=== PATIENT | female | born 1955 | race Caucasian/White ===

== ENCOUNTER 2020-10-23 10:08 | Inpatient (IN) | payer OTHER ==
[~2020-10-23] VITALS: Ht 152.4 cm; Wt 76.2 kg
[2020-10-23] VITALS (15 sets, daily range): BP systolic 111–144; BP diastolic 54–76
[2020-10-23] MEDS ORDERED: LIDOCAINE 1% PF 2 ML VIAL. ONE (10:19)
[2020-10-23] MEDS ORDERED: IODIXANOL 320 MG/ML 100 ML VIAL. ONE (10:19)
[2020-10-23] MEDS ORDERED: HEPARIN for ARTERIAL LINE 1,500 ML ONE (10:19)
[2020-10-23] MEDS ORDERED: fentaNYL PF VIAL 100 MCG/2 ML VIAL ONE (10:32)
[2020-10-23] MEDS ORDERED: VERAPAMIL 5 MG/2 ML VIAL. ONE (10:33)
[2020-10-23] MEDS ORDERED: NITROGLYCERIN 200 MCG/2 ML SYRINGE FOR CATH/VASC LAB. ONE ×3 (10:33→11:40)
[2020-10-23] MEDS ORDERED: HEPARIN for IV BOLUS 10,000 UNIT/10 ML VIAL. ONE (10:33)
[2020-10-23] MEDS ORDERED: MIDAZOLAM HCL/PF 2 MG/2 ML VIAL. ONE (10:33)
[2020-10-23] MEDS ORDERED: OMEP20CA16 PO (11:01)
[2020-10-23] MEDS ORDERED: HYDR200T5 PO (11:01)
[2020-10-23] MEDS ORDERED: FURO-68 PO (11:01)
[2020-10-23] MEDS ORDERED: [UNRECOGNIZED DRUG - OTHER] MT (11:01)
[2020-10-23] MEDS ORDERED: ASPI81TA59 PO (11:01)
[2020-10-23] MEDS ORDERED: AMLO5TAB4 PO (11:01)
--- NOTE | 2020-10-23 11:17 | PDOC ---
MODERATE SEDATION ASSESSMENT RISKS/ALTERNATIVES Risks/Alternatives Risks and alternatives of this type of sedation and procedure discussed with: RISK/ALTERNATIVES: Patient H & P ON CHART H & P H & P on chart and reviewed for co-morbid conditions and appropriate labs. H&P ON CHART: Yes STATUS PREG STATUS ASSESSED: N/A MEDS/ALLERGIES REVIEWED Meds/Allergies Reviewed Medications and Allergies including time and route of recently administered narcotics and sedatives. MEDS/ALLERGIES REVIEWED: Yes ASA RATING ASA RATING: II AIRWAY ASSESSMENT Airway Assessment Airway patency, oral function limitations, presence of caps, crowns, dentures, partials, and ability to extend neck assessed. AIRWAY ASSESSMENT: Yes MALLAMPATI SCORE MALLAMPATI SCORE: II PRE-SEDATION ASSESSMENT PRE-SEDATION ASSESSMENT: Yes IRVIN BARBOSA MD Oct 23, 2020 11:17
[2020-10-23] MEDS ORDERED: NITROGLYCERIN 200 MCG/2 ML SYRINGE FOR CATH/VASC LAB. IART ONE (11:30)
[2020-10-23] MEDS ORDERED: IODIXANOL 320 MG/ML 100 ML VIAL. IART ONE (11:30)
[2020-10-23] MEDS ORDERED: LIDOCAINE 1% PF 2 ML VIAL. INJ ONE (11:30)
[2020-10-23] MEDS ORDERED: fentaNYL PF VIAL 100 MCG/2 ML VIAL IV ONE (11:30)
[2020-10-23] MEDS ORDERED: HEPARIN for IV BOLUS 10,000 UNIT/10 ML VIAL. IART ONE (11:30)
[2020-10-23] MEDS ORDERED: VERAPAMIL 5 MG/2 ML VIAL. IART ONE (11:30)
[2020-10-23] MEDS ORDERED: MIDAZOLAM HCL/PF 2 MG/2 ML VIAL. IV ONE (11:30)
[2020-10-23] MEDS ORDERED: TIROFIBAN 5MG -0.9% NS 100 ML IV ONE (11:35)
--- NOTE | 2020-10-23 11:42 | HP ---
ADMIT DATE: 10/23/2020 HISTORY OF PRESENT ILLNESS: The patient is a 65-year-old female patient transferred from [facility] where she was admitted with chest pain. She is known to have scleroderma. She reported intermittent pressure on her central chest for the last several years, seems to occur with exertional activities and resolved with rest. She underwent stress test and echocardiogram last year that were unremarkable in recent months. Pain has been occurring more frequently and also developing at rest over the last couple of weeks, has been experiencing this pain at night as well as located in her left chest, describes it as pressure radiated down to her left arm, not associated with any dizziness, nausea or diaphoresis. Pain seems to be improved with sitting up. Does have a history of gastroesophageal reflux disease and she is on proton pump inhibitor. Reports pain to be different than what she typically experienced with gastroesophageal reflux disease. Saw her primary care physician a couple of days ago, who recommended to get in with her spot checker. The last night before admission the pain has became very intense and was associated with shortness of breath, left arm pain and tingling, diaphoresis and so she came to the Emergency Department for further evaluation and treatment. Her initial troponins were negative and EKG was unremarkable. She was evaluated by the Cardiology team and a decision was made to transfer her to [facility] for a cardiac catheterization. PAST MEDICAL HISTORY: Significant for scleroderma, diverticulosis and gastroesophageal reflux disease. PAST SURGICAL HISTORY: Significant for cholecystectomy. FAMILY HISTORY: Positive for cancer and diabetes. SOCIAL HISTORY: She lives with her family. Does not smoke, drink alcohol or recreational drugs. ALLERGIES: SHE IS ALLERGIC PROCHLORPERAZINE. MEDICATIONS: She is currently on the following medication: She is on hydroxychloroquine sulfate 200 mg twice a day, amlodipine besylate 5 mg daily, nabumetone 750 mg twice a day, furosemide 40 mg once a day, omeprazole 20 mg daily. REVIEW OF SYSTEMS: As per history of present illness. PHYSICAL EXAMINATION: GENERAL: On examining her, the patient looked well and was clearly in no apparent respiratory distress. There is no pallor, jaundice, cyanosis or thyromegaly. No jugular venous distention. No lower limb edema. VITAL SIGNS: Her heart rate was 83, blood pressure 102/64, temperature was 98.4, respiratory rate was 18, and oxygen saturation 100% on 2 liters of oxygen. HEAD, EYES, EARS, NOSE, AND THROAT: Normocephalic, atraumatic. NECK: Supple. HEART: Showed normal first and second heart sounds. No gallop, rub or murmur. CHEST: Clear to auscultation, no crepitation or rhonchi. ABDOMEN: Distended, soft, nontender. NEUROLOGIC: She was grossly intact. LABORATORY DATA: Her lab work done at [facility] this morning showed a white cell count of 7700, hemoglobin 12, hematocrit 37, MCV 98 and platelet count of 212,000 with normal manual differential. Her sedimentation rate was 6 mm per hour. Her chemistry this morning showed a serum sodium of 142, potassium 3.8, chloride 109, bicarbonate 26, anion gap of 7, BUN 13, creatinine 0.9. Estimated GFR was 63 mL per minute. Her glucose was 95 and calcium was 8.5. She has 3 sets of troponins, all less than 0.017. Her C-reactive protein was 1.3 mg per liter. Her serum triglycerides was 91. Total cholesterol 189, LDL cholesterol 106, VLDL was 18, HDL was 65, and ratio 2. TSH was 4.934. ASSESSMENT AND PLAN: In summary, this is a 65-year-old female patient who was transferred to [facility] for cardiac catheterization as she is having a recurrent episode of chest pain that is worse at nighttime. Her past medical history is significant for scleroderma. She has gastroesophageal reflux disease, diverticulosis, morbid obesity, severe sensorineural deafness, shingles ear, ear tinnitus and we will consult obviously the Cardiology team. Continue with all her medications. [facility] [place] DR: Usman TID: [id number]
[2020-10-23] MEDS ORDERED: NITROGLYCERIN 200 MCG/2 ML SYRINGE FOR CATH/VASC LAB. ICAR ONE (12:00)
[2020-10-23] MEDS ORDERED: HEPARIN for IV BOLUS 10,000 UNIT/10 ML VIAL. IV ONE (12:00)
[2020-10-23] MEDS ORDERED: PRASUGREL 10 MG TABLET. PO ONE (12:00)
[2020-10-23] MEDS ORDERED: TIROFIBAN 5MG -0.9% NS 100 ML IV PRN (12:00)
[2020-10-23] MEDS ORDERED: fentaNYL PF VIAL 100 MCG/2 ML VIAL IV PRN (12:30)
[2020-10-23] MEDS ORDERED: NITROGLYCERIN SUBLINGUAL 0.4 MG BOTTLE OF 25. SL PRN (12:30)
[2020-10-23] MEDS ORDERED: 0.9 % SODIUM CHLORIDE 10 ML DISP.SYRIN. IV PRN (12:30)
[2020-10-23] MEDS ORDERED: ACETAMINOPHEN 325 MG TABLET. PO PRN (12:30)
[2020-10-23] MEDS ORDERED: AMIODARONE 150 MG in IV DEXTROSE 5% 100ML 100 ML IV PRN (12:30)
[2020-10-23] MEDS ORDERED: ATROPINE 0.5 MG/5 ML DISP.SYRINGE. IV PRN (12:30)
[2020-10-23] MEDS ORDERED: LIDOCAINE 2% 100 MG/5 ML SYRINGE. IV PRN (12:30)
--- NOTE | 2020-10-23 14:18 | CARD ---
MR#: [id number] Date of Study: 10/23/2020 Ordering Physician: IRVIN RAGLAND, Referring Physician: IRVIN RAGLAND, Tech: RT Gunjan(R) APPROVED REPORT Technologist: RT Gunjan(R) Nurse: Donna Summers RN Procedure(s) performed: MODERATE SEDATION TIME: 66 MINUTES FLUORO TIME: 5.9 MIN DOSE:70 GYCM2 CONTRAST:86 CC [address] [facility], Coronary angiography, PCI of the RCA [facility] Clinical Frailty Scale [facility] Clinical Frailty Scale: Mildly Frail Heart Failure Heart Failure: No CASE TECHNIQUE IV conscious sedation was used throughout procedure with appropriate monitoring and was performed in the presence of a registered nurse who was an independent trained observer other than the physician p erforming the procedure. During this case, Fluoroscopy and low osmolar contrast were used for imaging . Specimen(s) Removed: N/A Estimated Blood loss: 15 cc's. PROCEDURE NARRATIVE Clinical information: 65-year-old woman presented to the hospital in the setting of unstable angina. She was taken the cat heterization laboratory after discussion of risks and benefits Procedure details: Under 1% lidocaine local anesthesia a 6 Trinidadian sheath was placed in the right radial artery. Diagnos tic angiography was then performed with a 6 Trinidadian TIG catheter. Left ventricular end-diastolic pres sure was obtained with a 6 Trinidadian TIG catheter and a pullback was performed. Findings: Hemodynamics: Aorta 120/80 LVEDP 10 mmHg No LV to aortic pullback gradient Coronary angiography: Left main is a large-caliber vessel with normal angiographic appearance LAD is a moderate caliber vessel with a proximal to mid 30% stenosis D1 is a small caliber vessel with mild luminal irregularities Left circumflex is a moderate caliber nondominant vessel with normal angiographic appearance OM1 is a small caliber vessel with normal angiographic appearance LPL 1 is a small to moderate caliber vessel with normal angiographic appearance RCA is a moderate caliber vessel proximally and tapers to a small caliber vessel distally and there i s a 95% stenosis just prior to the bifurcation RPDA and RPL are small caliber vessels with mild luminal irregularities Interventional technique: Heparin was used for anticoagulation. A tirofiban bolus was also administered. Through a 6 Trinidadian J R4 guide catheter a Prowater wire was placed in the distal RPL. Balloon angioplasty was performed wi th a 2.0 x 8 mm balloon and then the lesion was stented with a 2.25 x 12 mm Promus drug-eluting stent . Final angiography demonstrated excellent stent expansion with JANI-3 flow in the vessel no evidenc e of guide or wire related complications. The patient received 60 mg of prasugrel at case completion No acute complications. JANI Flow JANI Flow (Pre-Intervention): JANI-3 JANI Flow (Post-Intervention): JANI-3 Conclusion 1. Normal left-sided filling pressures 2. One-vessel coronary artery disease involving the RCA 3. Successful PCI of the distal RCA with implantation of a 2.25 x 12 mm Promus drug-eluting stent. Recommendations Aspirin 81 mg daily Prasugrel 10 mg daily High-dose statin therapy Cardiac rehabilitation Signed by : Irvin Ragland, Electronically Approved : 10/23/2020 14:17:46
[2020-10-23] MEDS ORDERED: ATORVASTATIN CALCIUM 20 MG TABLET PO SCH (21:00)
[2020-10-24 03:00] VITALS: BP 137/69
[2020-10-24 07:00] VITALS: BP 111/56
--- NOTE | 2020-10-24 07:18 | NUR ---
Dr. Jones telephone order to continue home medications and can provide home medication to take while in hospital.
[2020-10-24] MEDS ORDERED: PANTOPRAZOLE 40 MG TABLET.DR. PO SCH (07:30)
[2020-10-24] MEDS ORDERED: ASPIRIN ENTERIC COATED 81 MG TABLET.DR. PO SCH (08:00)
[2020-10-24] MEDS ORDERED: PRASUGREL 10 MG TABLET. PO SCH (08:00)
[2020-10-24] MEDS ORDERED: METOPROLOL SUCC 24HR ER 25 MG TAB.ER.24H. PO SCH (09:00)
[2020-10-24] MEDS ORDERED: HYDROXYCHLOROQUINE 200 MG TABLET PO SCH (09:00)
[2020-10-24 10:11] VITALS: BP 122/59
[2020-10-24] MEDS ORDERED: PRAS10TA9 PO (10:45)
[2020-10-24] MEDS ORDERED: METO-239 PO (10:45)
[2020-10-24] MEDS ORDERED: ATOR40TA59 PO (10:45)
--- NOTE | 2020-10-24 11:12 | NUR ---
SS following for discharge planning. SS reviewed pt chart and discussed with pt RN. Pt is from home with spouse and is currently on room air. Pt had heart cath on 10/23/2020. Discharge order on the chart for home with self care.
--- NOTE | 2020-10-24 12:25 | PDOC ---
CARDIO Progress Notes Date and Time Date of Service 10/24/2020 Time of Evaluation 1150 Subjective Subjective: No Chest Pain, No shortness of breath, No Palpitations Vitals Vitals Vital Signs Date Time Temp Pulse Resp B/P (MAP) Pulse Ox O2 Delivery O2 Flow Rate FiO2 10/24/20 10:11 98.1 83 16 122/59 (80) 97 Room Air 98.1 10/23/20 12:14 2.0 Weight Weight [ ] Input and Output Intake and Output Intake and Output 10/24/20 07:00 Intake Total 1330 ml Balance 1330 ml Intake Oral 1330 ml # Voids 2 Laboratory Labs Laboratory Tests Test 10/24/20 04:30 Triglycerides Level 65 mg/dL (0-150) Cholesterol Level 170 mg/dL (0-200) LDL Cholesterol, Calculated 101 mg/dL (0-100) VLDL Cholesterol, Calculated 13 mg/dL (0-40) Non-HDL Cholesterol Calculated 114 mg/dL (0-129) HDL Cholesterol 56 mg/dL (40-60) Cholesterol/HDL Ratio 3.0 Physical Exam HEENT: Neck Supple W Full Motion LUNGS: Clear to Auscultation Heart: S1S2, RRR (SR) Abdomen: Soft N/T Extremities: No Edema, No Calf Tenderness Neurology: alert, oriented, follow commands Other Exams right wrist arteriotomy site with some bruising and very mild swelling otherwise neurovascular status is intact. Assessment Assessment 1. Unstable angina: S/P PCI/NANDINI to RCA 2. Scleroderma 3. GERD Recommendations 1. Start on toprol. DC norvasc. moving forward could add ACEi if BP allows for scleroderma 2. ASA and effient 3. TTE today prior to DC. Enceouraged cardiac rehab. Anticipate DC this afternoon 4. Follow up in office as scheduled Justicifation of Admission Dx: Justifications for Admission: Justification of Admission Dx: Yes KAI INFANTE APRN Oct 24, 2020 12:25
[2020-10-24 14:18] VITALS: BP 124/59
--- NOTE | 2020-10-24 15:08 | NUR ---
Discharge Note: [facility] Discharge instructions and discharge home medications reviewed with Patient and a copy given. All questions have been answered and understanding verbalized. The following instructions and handouts were given: Cardiac catheterization, metoprolol, effient, and cardiac rehab. Discontinued lines and drains: IV and removed tele. Patient discharged to home. Patient rosettes sent with them.
== END 2020-10-24 15:01 | disposition home or self-care (01) | DRG 247 ==
LOC: 6 SOUTH 10:08
PROVIDERS: ADMIT Internal Medicine; ATTEND Internal Medicine
PROC: B2111ZZ Fluoroscopy of Multiple Coronary Arteries using Low Osmolar Contrast (ICD-10-PCS; principal; 2020-10-23)
PROC: 027034Z Dilation of Coronary Artery, One Artery with Drug-eluting Intraluminal Device, Percutaneous Approach (ICD-10-PCS; 2020-10-23)
PROC: 4A023N7 Measurement of Cardiac Sampling and Pressure, Left Heart, Percutaneous Approach (ICD-10-PCS; 2020-10-23)
DX: I20.0 Unstable angina (principal); E66.01 Morbid (severe) obesity due to excess calories; K21.9 Gastro-esophageal reflux disease without esophagitis; K57.90 Diverticulosis of intestine, part unspecified, without perforation or abscess without bleeding; M34.9 Systemic sclerosis, unspecified; Z83.3 Family history of diabetes mellitus; Z98.61 Coronary angioplasty status; Z88.8 Allergy status to other drugs, medicaments and biological substances; Z68.32 Body mass index [BMI] 32.0-32.9, adult
CPT/HCPCS: 36415; 80061; 92928; 93306; 93458; 99152; 99153; C1894; J1644; J2250; J3010; J3490; Q9967; C1725; C1874; G0378; J3246